=== PATIENT | female | born 1960 | race Caucasian/White ===

== ENCOUNTER 2018-08-28 19:23 | Emergency (ER) | payer MEDICARE ==
[~2018-08-28 19:23] MED LIST: ADVAIR 250-501 EACH; ADVAIR 500-501 EACH; BIAXIN 500 MG500 M2; BUMETANIDE 1 MG1 M1; DEPAKOTE500 MG PO; DESYREL50 MG PO; DILANTIN100 MG PO; KEPPRA 500 MG500 M1 PO; METOLAZONE 5 MG5 M1; POTASSIUM20; RISPERDAL2 MG PO; RISPERIDONE1 MG; SERTRALINE HCL100 MG PO; SINEMET 10-1001 EAC1; SINGULAIR 10 MG10 M1; TRINESSA1 EACH; Trazodone PO; XANAX 0.5 MG0.5 M1; ZOLOFT100 MG PO
[2018-08-28 19:29] VITALS: BP 0/0
== END 2018-08-28 19:29 ==
LOC: EDBD 19:23 → M.ERS 19:23
DX: I46.9 Cardiac arrest, cause unspecified (principal); T17.228A Food in pharynx causing other injury, initial encounter; E11.9 Type 2 diabetes mellitus without complications; J44.9 Chronic obstructive pulmonary disease, unspecified; Z87.440 Personal history of urinary (tract) infections; Z86.73 Personal history of transient ischemic attack (TIA), and cerebral infarction without residual deficits; X58.XXXA Exposure to other specified factors, initial encounter; Y93.89 Activity, other specified; Y92.89 Other specified places as the place of occurrence of the external cause; Y99.8 Other external cause status